=== PATIENT | female | born 1990 | race Hispanic/Latino ===

== ENCOUNTER 2021-10-19 16:20 | Emergency (ER) | payer OTHER ==
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
[2021-10-19 18:14] VITALS: BP 132/78
== END 2021-10-19 18:39 | disposition home or self-care (01) ==
LOC: ED 16:20
DX: M25.512 Pain in left shoulder (principal); V89.2XXA Person injured in unspecified motor-vehicle accident, traffic, initial encounter; Y93.89 Activity, other specified; Y92.89 Other specified places as the place of occurrence of the external cause; Y99.8 Other external cause status
CPT/HCPCS: 99283